=== PATIENT | male | born 2000 | race Caucasian/White ===

== ENCOUNTER 2022-02-09 11:11 | Emergency (ER) | payer OTHER ==
[~2022-02-09] VITALS: Ht 170.2 cm; Wt 81.6 kg
[2022-02-09] MEDS ORDERED: KETOROLAC TROMETHAMINE INJ 30 MG/ML VIAL IM ONE (11:30)
[2022-02-09] MEDS ORDERED: TDAP [DIPH/PERTUSSIS/TET] 0.5 ML VIAL IM ONE ×2 (11:30→11:50)
[2022-02-09] MEDS ORDERED: BACI/NEOM/POLY B OINT PKT 1 UDPKT PACKET TP ONE (11:30)
[2022-02-09] MEDS ORDERED: KETOROLAC TROMETHAMINE 15 MG/ML VIAL ONE (11:50)
[2022-02-09] MEDS ORDERED: NEOMY SULF/BACITRA/POLYMYXIN B 3.5 GM TUBE ONE (11:50)
[2022-02-09] MEDS ORDERED: CEPH500C2 PO (12:13)
[2022-02-09] MEDS ORDERED: IBUP-1955 PO (12:13)
[2022-02-09 12:17] VITALS: BP 126/70
== END 2022-02-09 12:17 | disposition home or self-care (01) ==
LOC: ER 11:27
DX: S71.131A Puncture wound without foreign body, right thigh, initial encounter (principal); W29.4XXA Contact with nail gun, initial encounter; Y93.89 Activity, other specified; Y92.89 Other specified places as the place of occurrence of the external cause; Y99.8 Other external cause status
CPT/HCPCS: 99284; 96372; 90471; 90715; J1885

== ENCOUNTER 2022-02-23 10:31 | Emergency (ER) | payer OTHER ==
[~2022-02-23] VITALS: Ht 172.7 cm; Wt 81.6 kg
[2022-02-23 10:31] VITALS: BP 154/96
[~2022-02-23 10:31] MED LIST: CEPH500C2 PO; IBUP-1955 PO
--- NOTE | 2022-02-23 10:31 | NUR ---
BIB [employer] WITH NAIL ON HIS 4TH DIGIT ON HIS R HAND, PT UP TO DATE WITH TDAP. PT STATED PAIN IS 7/[address] CAMACHO AT BEDSIDE FOR EVAL.
--- NOTE | 2022-02-23 10:45 | NUR ---
Receved pt 21 yrs male came from home c/o long nail stocke on RIGHT midle finger no active bleeding no diformity
--- NOTE | 2022-02-23 10:48 | NUR ---
DR CAMACHO AT BEDSIDE FOR EVAL
[2022-02-23] MEDS ORDERED: LIDOCAINE 2% 20 ML MDV ONE (10:56)
--- NOTE | 2022-02-23 11:05 | NUR ---
at bed side removed long nail from rt medle finge intact pt bleding from finger appled pressur done dressing apple by ED tach
[2022-02-23] MEDS ORDERED: GELATIN SPONGE,ABSORBABLE 1 SPONGE SPONGE TP ONE (11:36)
--- NOTE | 2022-02-23 11:45 | NUR ---
no active bleeding on RT medil finger bleeding stoped dressing appled
== END 2022-02-23 11:57 | disposition home or self-care (01) ==
LOC: ER 10:42
DX: S61.234A Puncture wound without foreign body of right ring finger without damage to nail, initial encounter (principal); Z79.899 Other long term (current) drug therapy; W29.4XXA Contact with nail gun, initial encounter; Y93.89 Activity, other specified; Y92.89 Other specified places as the place of occurrence of the external cause; Y99.8 Other external cause status
CPT/HCPCS: 64450; 99284; 73140; A6403; J3490